=== PATIENT | male | born 1955 | race Caucasian/White ===

== ENCOUNTER 2019-06-16 | Emergency (ER) | payer MEDICARE ==
[~2019-06-16] MED LIST: ASA LO-DOSE81 MG OR; AUGMENTIN875 MG PO; BACLOFEN10 MG PO; BUFFERIN LOW81 MG PO; CYCLOBENZAPR10 MG PO; FISH OIL CON1000 MG OR; FLEXERIL10 MG PO; GLIPIZIDE ER2.5 MG PO; GLIPIZIDE ER5 MG PO; GLIPIZIDE10 M2 PO; GLIPIZIDE5 M2 PO; GNP CINNAMON500 M1 PO; LIPITOR20 MG OR; LISINOPRIL10 MG PO; LOPID600 MG PO; LYRICA50 MG OR; METFORMIN HCL1000 MG PO; METFORMIN HCL500 M2 PO; METFORMIN1000 MG PO; MORPHINE SULFAT30 M1 PO; MORPHINE SULFAT60 M2 PO; MULTIVITAMI OR; MULTIVITAMI1; MULTIVITAMIN PO; NIACIN; NIACIN250 MG; PRAVASTATIN SOD10 MG PO; SOMA350 MG OR; TENORMIN25 MG PO; TRAMADOL HCL50 MG PO; VICODIN HP1 TAB OR
== END 2019-06-16 11:09 | disposition home or self-care (01) ==
DX: S00.81XA Abrasion of other part of head, initial encounter (principal); S16.1XXA Strain of muscle, fascia and tendon at neck level, initial encounter; E11.9 Type 2 diabetes mellitus without complications; I10 Essential (primary) hypertension; W06.XXXA Fall from bed, initial encounter; Y92.003 Bedroom of unspecified non-institutional (private) residence as the place of occurrence of the external cause; Z79.84 Long term (current) use of oral hypoglycemic drugs